=== PATIENT | female | born 1965 | race Caucasian/White ===

== ENCOUNTER 2020-10-29 18:18 | Inpatient (IN) | payer BC ==
[~2020-10-29] VITALS: Ht 175.3 cm; Wt 68.2 kg
[2020-10-29] MEDS ORDERED: DEBL1TAB (18:23)
[2020-10-29 19:04] LABS: BASO # 0.1 10^3/uL (0.0-0.2); BASO % 0.6 % (0.0-1.0); EOS # 0.1 10^3/uL (0.0-0.5); EOS % 1.3 % (0.0-3.0); HEMATOCRIT 40.4 % (36.0-47.0); HEMOGLOBIN 13.7 g/dl (12.0-15.5); LYMPH # 1.9 10^3/uL (1.5-5.0); LYMPH % 22.8 % (24.0-44.0); MEAN CORPUSCULAR HEMOGLOBIN 31.6 pg (27.0-33.0); MEAN CORPUSCULAR HGB CONC 33.9 g/dl (32.0-36.5); MEAN CORPUSCULAR VOLUME 93.1 fl (80.0-96.0); MONO # 0.6 10^3/uL (0.0-0.8); MONO % 7.1 % (2.0-8.0); NEUTROPHILS # 5.7 10^3/uL (1.5-8.5); PLATELET COUNT, AUTOMATED 218 10^3/uL (150-450); RED BLOOD COUNT 4.34 10^6/uL (4.00-5.40); WHITE BLOOD COUNT 8.4 10^3/uL (4.0-10.0)
[2020-10-29 19:35] LABS: ALBUMIN 4.2 GM/DL (3.2-5.2); BILIRUBIN,DIRECT 0.2 MG/DL (0.0-0.2); BILIRUBIN,TOTAL 0.5 MG/DL (0.2-1.0); TOTAL PROTEIN 6.9 GM/DL (6.4-8.2)
[2020-10-29] MEDS ORDERED: ISOVUE-370 76% 100ML VIAL As Ordered ONE (21:16)
--- NOTE | 2020-10-29 22:52 | REPVR ---
PROCEDURE INFORMATION: Exam: CT Abdomen And Pelvis With Contrast Exam date and time: 10/29/2020 9:50 PM Age: 55 years old Clinical indication: Abdominal pain; Other: Rlq/pelvic pain x 7 days, loss of appetite, vomitng TECHNIQUE: Imaging protocol: Computed tomography of the abdomen and pelvis with contrast. Radiation optimization: All CT scans at this facility use at least one of these dose optimization techniques: automated exposure control; mA and/or kV adjustment per patient size (includes targeted exams where dose is matched to clinical indication); or iterative reconstruction. Contrast material: ISOVUE 370; Contrast volume: 100 ml; Contrast route: INTRAVENOUS (IV); COMPARISON: No relevant prior studies available. FINDINGS: Liver: Probable right hepatic cyst measuring 5 mm. Gallbladder and bile ducts: Normal. No calcified stones. No ductal dilation. Pancreas: Normal. No ductal dilation. Spleen: Normal. No splenomegaly. Adrenal glands: Normal. No mass. Kidneys and ureters: Normal. No hydronephrosis. Stomach and bowel: No bowel dilatation. Appendix: Enlarged appendix measuring 12 mm with enhancing wall which measures up to 4 mm. There is slight surrounding induration. There is a small calcification near the cecal junction. The cecum is contracted with wall thickening consistent with inflammatory change. The visualized appendiceal wall appears to be intact overall with no evidence of rupture or disruption. No periappendiceal abscess or fluid collection is seen. Intraperitoneal space: Mild free fluid is noted in the cul-de-sac with a Hounsfield measurement of 13 which is probably reactive. Vasculature: Unremarkable. No abdominal aortic aneurysm. Lymph nodes: Unremarkable. No enlarged lymph nodes. Urinary bladder: Unremarkable as visualized. Reproductive: Unremarkable as visualized. Bones/joints: Unremarkable. No acute fracture. Soft tissues: Unremarkable. IMPRESSION: 1. Appendicitis. 2. The cecum is contracted with wall thickening which likely reflects secondary inflammatory change. 3. Mild free fluid in the cul-de-sac which is likely reactive with a Hounsfield measurement of 13. Electronically signed by: Hema Castellanos On 10/29/2020 22:51:34 PM
[2020-10-29] MEDS ORDERED: PIPERACILLIN/TAZOBACTAM SOD 3.375 GM in D5W MINI-BAG PLUS 50 ML IV ONE (23:05)
[2020-10-29] MEDS ORDERED: VITMTA PO (23:19)
[2020-10-29] MEDS ORDERED: NORE0.353 PO (23:19)
[2020-10-29] MEDS ORDERED: FISH1000 PO (23:19)
[2020-10-29] MEDS ORDERED: OYST500T91 PO (23:19)
[2020-10-29] MEDS ORDERED: IBUP-1720 PO (23:19)
[2020-10-29] MEDS ORDERED: ONDANSETRON 4MG/2ML VIAL IV PRN (23:20)
[2020-10-29] MEDS ORDERED: NORCO, ANEXSIA 5/325MG TABLET (HYDROcodone/ACETAMINOPHEN) PO PRN (23:20)
[2020-10-29] MEDS ORDERED: KETOROLAC 30 MG/ML 1ML VIAL IV PRN (23:20)
[2020-10-29] MEDS ORDERED: ACETAMINOPHEN TAB 650MG DOSE (2X325MG) PO PRN (23:20)
[2020-10-30 01:00] VITALS: BP 128/76
[2020-10-30] MEDS: PIPERACILLIN/TAZOBACTAM SOD 3.375 GM in D5W MINI-BAG PLUS 50 ML IV SCH ×2 (05:48→11:00)
[2020-10-30 06:00] VITALS: BP 115/71
[2020-10-30 06:18] LABS: HEMATOCRIT 37.6 % (36.0-47.0); HEMOGLOBIN 12.4 g/dl (12.0-15.5); MEAN CORPUSCULAR HEMOGLOBIN 30.8 pg (27.0-33.0); MEAN CORPUSCULAR VOLUME 93.3 fl (80.0-96.0); PLATELET COUNT, AUTOMATED 189 10^3/uL (150-450); RED BLOOD COUNT 4.03 10^6/uL (4.00-5.40); WHITE BLOOD COUNT 7.4 10^3/uL (4.0-10.0)
[2020-10-30 06:47] LABS: BLOOD UREA NITROGEN 12 MG/DL (7-18); CALCIUM LEVEL 8.9 MG/DL (8.5-10.1); CARBON DIOXIDE LEVEL 28 MEQ/L (21-32); CHLORIDE LEVEL 108 MEQ/L (98-107); CREATININE FOR GFR 0.84 MG/DL (0.55-1.30); GLOMERULAR FILTRATION RATE > 60.0 (>51); GLUCOSE, FASTING 76 MG/DL (70-100); POTASSIUM SERUM 3.5 MEQ/L (3.5-5.1); SODIUM LEVEL 142 MEQ/L (136-145)
[2020-10-30] MEDS ORDERED: AMOX875T2 PO (07:27)
[2020-10-30] MEDS: NS 1,000 ML IV SCH ×2 (07:48)
[2020-10-30] MEDS ORDERED: SENOKOT S TAB PO SCH (09:00)
--- NOTE | 2020-10-31 08:38 | HPE ---
HISTORY AND PHYSICAL DATE OF ADMISSION: 10/29/2020 CHIEF COMPLAINT: Right-sided abdominal pain. HISTORY OF PRESENT ILLNESS: The patient is a 55-year-old female who presented to the emergency room on the evening of the with severe right-sided abdominal pains. She did have similar right-sided abdominal pains last Wednesday. She assumed it was food poisoning. She had a little bit of nausea and vomiting then, as well as the pain, that lasted for about 48 hours and then it resolved on its own. Then starting up on Wednesday, the pain started to come back. They are persistent. She was still able to eat and drink, but the pains were persistent so she came into the ER for evaluation. She denies any nausea or vomiting currently. No fevers. In the emergency room, her labs were all normal. However, imaging did reveal some thickening and some inflammation around the appendix. Because of the inflammation involving the cecum as well, I evaluated her images remotely while she was in the ER and did not feel that she would be a good candidate for surgery and recommended we treat with just medical management, start her on some IV fluids, antibiotics, and kept her n.p.o. overnight. I saw her first thing this morning. She feels better already. Labs are still normal and she feels comfortable enough to go home. She denies ever having symptoms like this in the past. She has never had any prior surgery or trauma to the abdomen. She has no medical problems. No changes in diet or activity recently. PAST MEDICAL HISTORY: Negative. PAST SURGICAL HISTORY: Negative. ALLERGIES: None. HOME MEDICATIONS: None. SOCIAL HISTORY: Denies drug, alcohol, or tobacco use. FAMILY HISTORY: Non-contributory. REVIEW OF SYSTEMS: Pertinent positives and negatives as stated in the HPI. PHYSICAL EXAMINATION: GENERAL: Alert and oriented x3 in no acute distress. VITAL SIGNS: Temperature 97.3, pulse 53, respirations 21, blood pressure 151/71, pulse ox 99% on room air. HEENT: Pupils equal, round, reactive to light, and accommodation. HEART: S1, S2. Regular rate and rhythm. LUNGS: Clear to auscultation bilaterally. ABDOMEN: Soft. Slight tenderness to the right lower quadrant to deep palpation only. No rebounding, no guarding, and no rigidity. EXTREMITIES: No clubbing, cyanosis, or edema. LABORATORY DATA: White count is 7.4, hemoglobin 12.4, platelets 189,000. Potassium 3.5, creatinine 0.84. IMAGING DATA: CT abdomen and pelvis showed an enlarged appendix at 12 mm with an enhancing wall up to 4 mm. Slight surrounding induration. There is a small calcification near the cecal junction. The cecum is contracted with wall thickening consistent with inflammatory changes. The visualized appendiceal wall appears to be intact overall with no evidence of rupture or disruption. ASSESSMENT AND PLAN: The patient again is a 55-year-old healthy female presenting with right lower quadrant pains found to have what appears to be acute versus chronic appendicitis on CT. She has normal labs. The recommendation at this time is to discharge her home with antibiotics and on a regular diet. She can follow-up with me in the office in about two weeks. We will see how she is feeling then and possibly plan for elective outpatient surgery. This plan was discussed in detail with her. I did give her the option of holding off on any surgery if she does feel well in a couple of weeks. However, due to the fact that there is an appendicolith that appears to be near the base of the appendix, I told her this would be high risk of returning and therefore, she may benefit from having this removed electively. She understands, will come and see me in a couple of weeks, we will discuss it further, and plan for further action at that point.
== END 2020-10-30 11:20 | disposition home or self-care (01) | DRG 254 ==
LOC: M ED 18:18 → M ED INP 23:19 → ENRESERV 10-30 00:35 → M MS5PR 10-30 01:03
PROVIDERS: ADMIT Surgery; ATTEND Surgery
DX: K35.80 Unspecified acute appendicitis (principal); Z20.822 Contact with and (suspected) exposure to COVID-19

== ENCOUNTER → 2020-11-26 | Outpatient (REF) | payer BC ==
[~2020-11-26] MED LIST: AMOX875T2 PO; DEBL1TAB; FISH1000 PO; IBUP-1720 PO; NORE0.353 PO; OYST500T91 PO; VITMTA PO
== END ==
LOC: M LAB REF 16:46
PROVIDERS: ATTEND Internal Medicine
DX: K36 Other appendicitis (principal)

== ENCOUNTER → 2021-02-12 | Outpatient (CLI) | payer BC ==
[~2021-02-12] MED LIST changes: +DEBL1TAB PO
== END ==
LOC: M LABSMTC 11:08
PROVIDERS: ATTEND Anesthesiology
DX: Z01.818 Encounter for other preprocedural examination (principal); Z20.822 Contact with and (suspected) exposure to COVID-19

== ENCOUNTER 2021-02-14 06:02 | Day surgery (SDC) | payer BC ==
[~2021-02-14] VITALS: Ht 175.3 cm; Wt 66.7 kg
[~2021-02-14 06:02] MED LIST changes: +LR 1,000 ML IV ONE; +ceFAZolin SOD 2 GM in IV 1 EA IV ONE
[2021-02-14] MEDS ORDERED: BUPIVACAINE/EPIN 0.25% 30 ML VIAL As Ordered ONE (07:08)
[2021-02-14] MEDS ORDERED: LIDOCAINE 2% 100MG/5ML SDV (FOR ANES.) As Ordered ONE (07:12)
[2021-02-14] MEDS ORDERED: propofoL 200 MG/20 ML VIAL As Ordered ONE (07:12)
[2021-02-14] MEDS ORDERED: ROCURONIUM BROMIDE 50 MG/5 ML VIAL As Ordered ONE (07:12)
[2021-02-14] MEDS ORDERED: dexameTHASONE 4 MG/ML 1ML VIAL (J1100 PER 1MG) As Ordered ONE (07:13)
[2021-02-14] MEDS ORDERED: KETOROLAC 60MG 2ML VIAL As Ordered ONE (07:13)
[2021-02-14] MEDS ORDERED: ACETAMINOPHEN 1000MG 100ML IV BTL (OFIRMEV) (J0131 PER 10MG) As Ordered ONE (07:13)
[2021-02-14] MEDS ORDERED: MIDAZOLAM INJ 2MG/2ML VIAL (J2250 PER 1MG) As Ordered ONE (07:13)
[2021-02-14] MEDS ORDERED: ONDANSETRON 4MG/2ML VIAL As Ordered ONE (07:13)
[2021-02-14] MEDS ORDERED: SUGAMMADEX SODIUM 500 MG/5 ML VIAL (BRIDION) As Ordered ONE (07:13)
[2021-02-14] MEDS ORDERED: fentaNYL 100 MCG/2 ML INJECTION (J3010) As Ordered ONE (07:13)
[2021-02-14] MEDS ORDERED: LIDOCAINE 5% OINT 30GM TUBE As Ordered ONE (07:41)
[2021-02-14] MEDS ORDERED: LR 1,000 ML IV SCH (08:35)
[2021-02-14] MEDS ORDERED: METOCLOPRAMIDE INJ 10MG/2ML VIAL (J2765 PER 1) IV PRN (08:35)
[2021-02-14] MEDS ORDERED: ONDANSETRON 4MG/2ML VIAL IV PRN (08:35)
[2021-02-14] MEDS ORDERED: PERCOCET 5MG/325MG TAB PO PRN (08:35)
[2021-02-14] MEDS ORDERED: fentaNYL 100 MCG/2 ML INJECTION (J3010) IV PRN (08:35)
[2021-02-14] MEDS ORDERED: NORCO, ANEXSIA 5/325MG TABLET (HYDROcodone/ACETAMINOPHEN) PO PRN (08:40)
[2021-02-14 09:50] VITALS: BP 117/72
--- NOTE | 2021-02-14 09:50 | RO ---
OPERATIVE NOTE DATE OF OPERATION: 02/14/2021 PREOPERATIVE DIAGNOSIS: Appendicitis. POSTOPERATIVE DIAGNOSIS: Appendicitis. PROCEDURE: Laparoscopic appendectomy. SURGEON: Bahman Melgar DO FOOTBALL COACH: None. ANESTHESIA: General. ESTIMATED BLOOD LOSS: 5 mL. COMPLICATIONS: None. INDICATIONS FOR PROCEDURE: The patient is a 55-year-old female who presented to the hospital a couple of months ago with an acute appendicitis that was treated with antibiotics. She was given the option of watching it versus elective appendectomy. She chose to proceed with appendectomy. Risks and benefits of the procedure, not limited to, but including bleeding, infection, hernias, damage to surrounding structures, and need for further surgery, were discussed in detail with the patient. Informed consent was obtained and the procedure was planned. PROCEDURE: The patient was brought back to operating room #8. After successful sedation, the abdomen was sterilely prepped and draped. Next, a time-out was done to confirm the proper patient and proper procedure. Following that, a 5-mm incision was made in the left upper quadrant. Veress needle was inserted and the abdomen was insufflated to 15 mmHg. The Veress needle was then removed and an 8-mm Optiview port was used to gain access to the abdomen. Once the abdomen was entered, the 8-mm port was then placed supraumbilically in the midline and another 5-mm port was placed suprapubically in the midline. The cecum was then elevated up in the air. The appendix was identified. The appendix was then elevated. The mesoappendix was dissected free using the Enseal. Once the base of the appendix was reached, it was ligated with two PDS Endoloops and then placed inside of a 5-mm EndoCatch bag and brought out through the 8-mm port site at the umbilicus. Once that was completed, the abdomen was desufflated. The skin incisions were closed with 4-0 Vicryl subcuticular sutures. The abdomen was cleaned and dried. Steri-Strips, 4x4, and tape were applied.
== END 2021-02-14 10:22 | disposition home or self-care (01) ==
LOC: M SDC 06:02
PROVIDERS: ATTEND Surgery
DX: K80.10 Calculus of gallbladder with chronic cholecystitis without obstruction (principal); I10 Essential (primary) hypertension; M32.9 Systemic lupus erythematosus, unspecified; I73.00 Raynaud's syndrome without gangrene; M19.90 Unspecified osteoarthritis, unspecified site; R10.11 Right upper quadrant pain; E55.9 Vitamin D deficiency, unspecified; E89.0 Postprocedural hypothyroidism; Z79.899 Other long term (current) drug therapy; Z79.52 Long term (current) use of systemic steroids; Z79.891 Long term (current) use of opiate analgesic
CPT/HCPCS: 47562; 88304; J0131; J0690; J1100; J1885; J2250; J2405; J3010; S2900